=== PATIENT | male | born 1955 | race Caucasian/White ===

== ENCOUNTER 2018-03-27 11:09 | Outpatient (CLI) | payer OTHER ==
--- NOTE | 2018-03-27 15:53 | MRI ---
MRI OF THE BRAIN WITHOUT AND WITH CONTRAST: Date: 03/27/18 HISTORY: Mild cognitive impairment. TECHNIQUE: Multiplanar, multisequence MR images were obtained of the brain without and with IV contrast. FINDINGS: There are scattered foci of high FLAIR signal in the subcortical and periventricular white matter, li mando secondary to small vessel ischemic disease. No restricted diffusion is seen to suggest an acute infarction. No abnormal enhancement is appreciated. There is no evidence of hydrocephalus, intracranial hemorrhage, or extra-axial fluid collection. The expected flow-voids are present. The corpus callosum, pituitary, and craniocervical junction are unre markable. IMPRESSION: Small vessel ischemic disease without acute intracranial abnormality. POS: [facility]
--- NOTE | 2018-03-27 16:08 | MRI ---
MRI CERVICAL SPINE WITH AND WITHOUT CONTRAST: HISTORY: Abnormal gait. Evaluate for cord abnormality. COMPARISON: None. TECHNIQUE: Cervical spine MRI is performed with and without intravenous Gadolinium administration. Multisequent ial, multiplanar imaging is performed. FINDINGS: Appropriate T1 marrow signal intensity of the cervical vertebrae. Exaggeration of normal cervical lo rdosis likely due to patient position. 1.7 mm of retrolisthesis of C4 upon C5. No significant SIR h yperintensity to suggest vertebral body edema or ligamentous injury. With regard to the cervical cord, there is subtle T2 hyperintensity noted on the left aspect of the c ord at the C5-C6 disk space level. Additionally, there is abnormal signal intensity involving the up per thoracic cord at the T1-T2 level. Refer to separate thoracic spine report for further detail. O n the postcontrast images, there does not appear to be any associated enhancement. Visualized brain parenchyma appears to be unremarkable. There is no abnormal enhancement of the vertebral bodies. Mild fullness of the lingual tonsils is noted. Nonemergent directed visualization is recommended. C2-C3: No significant disk-osteophyte complex. No significant central canal stenosis. Foramen are patent. C3-C4: No significant disk-osteophyte complex. No significant central canal stenosis. Foramen are patent. C4-C5: Broad-based disk-osteophyte complex. Mild central canal stenosis. Degenerative change of jose ateral uncovertebral joints results in mild bilateral foraminal narrowing. C5-C6: Left paracentral disk-osteophyte complex. No high-grade central canal stenosis. Mild right and left foraminal narrowing due to degenerative changes of the uncovertebral joint. There is abnorm al T2 hyperintensity involving the left aspect of the cord measuring 0.3 cm. C6-C7: Central disk-osteophyte complex abuts the thecal sac. Mild central canal stenosis. Foramen are patent. Questionable T2 hyperintensity along the posterior left aspect of the cord measuring 0.3 cm. IMPRESSION: 1. Abnormal T2 hyperintensity in the cervical and thoracic cord, worrisome for demyelinating plaques until proven otherwise. There is no associated enhancement. Clinical correlation is essentially fo r multiple sclerosis. 2. Degenerative change of the cervical spine as above. POS: [facility]
--- NOTE | 2018-03-27 16:30 | MRI ---
MRI THORACIC SPINE WITH AND WITHOUT CONTRAST: HISTORY: Gait abnormality. Myelopathy. COMPARISON: None. TECHNIQUE: A thoracic spine MRI is performed with and without intravenous Gadolinium administration. Multiseque ntial, multiplanar imaging is performed. FINDINGS: Appropriate T1 marrow signal intensity of the thoracic vertebrae. Vertebral body height is maintaine d. No fracture. No significant STIR hyperintensity to suggest edema or ligamentous injury. The visualized mediastinal structures and lung parenchymal are unremarkable. Dependent atelectatic c hanges are noted. The visualized solid organs are also unremarkable. On the sagittal T2 and STIR images, there is T2 hyperintensity involving the thoracic cord at T1, T2, T4, and T5. Post contrast images are somewhat limited. Questionable enhancement of the cord at T1, which is only appreciated on the sagittal images, and is difficult to determine on the axial images. There is 3 mm of anterolisthesis of T3 upon T4. C5-C6: Central/left paracentral disk that deforms the cord. Mild central canal stenosis. T8-T9: Central/left paracentral disk. No significant central canal stenosis. The foramina are lucero nt. IMPRESSION: T2 abnormality involving the upper thoracic cord without obvious enhancement that can be appreciated on multiple planes. Demyelinating plaques are favored without evidence of definite active demyelinat ion. Correlate clinically for multiple sclerosis. POS: [facility]
== END 2018-03-27 11:10 | disposition home or self-care (01) ==
LOC: SCSMRI 11:09
PROVIDERS: ATTEND Psychiatry & Neurology Neurology
DX: G31.84 Mild cognitive impairment of uncertain or unknown etiology (principal); R26.9 Unspecified abnormalities of gait and mobility; G95.9 Disease of spinal cord, unspecified; M47.892 Other spondylosis, cervical region; G93.9 Disorder of brain, unspecified; R93.0 Abnormal findings on diagnostic imaging of skull and head, not elsewhere classified
CPT/HCPCS: 70553; 72156; 72157; 82565

== ENCOUNTER 2018-09-14 11:53 | Outpatient (CLI) | payer OTHER ==
[~2018-09-14 11:53] MED LIST: Gadobenate Dimeglumine 529 MG/1 ML (20ML VIAL) ONE
--- NOTE | 2018-09-15 09:38 | MRI ---
MRI BRAIN WITHOUT AND WITH CONTRAST: Comparison: 03-27-18 History: Multiple sclerosis. Patient is on new medication and needs new baseline. Technique: Multiplanar, multisequence MRI images were obtained of the brain without and with IV contr ast. FINDINGS: There are a few scattered foci of high T2/FLAIR signal in the subcortical and periventricular white m atter. The largest is seen in the left periventricular white matter measuring 1.1 cm in size. These l esions are all stable compared to the prior examination. Some of these lesions may involve the corpus callosum which can be seen with multiple sclerosis. No abnormal enhancement is seen on this exam to suggest active disease. There is no evidence of hydrocephalus, intracranial hemorrhage, or extraaxial fluid collection. No re stricted diffusion is seen. The calvarium and overlying soft tissues are unremarkable. The visualized paranasal sinuses and masto id air cells are well aerated. IMPRESSION: There are stable foci of high FLAIR signal in the white matter. This could be secondary to small vess el ischemic disease or multiple sclerosis. No enhancement is seen to suggest active disease at this t quentin. POS: [facility]
--- NOTE | 2018-09-15 11:24 | MRI ---
MRI CERVICAL SPINE WITH AND WITHOUT CONTRAST: Technique: Multiplanar, multisequence MRI imaging of the cervical spine were obtained with post contr ast administered after administration of 15 cc MultiHance IV. Indications: MS. Starting new medication and request new baseline. Comparison: 03-27-18 FINDINGS: The exam is degraded due to motion artifact. Numerous sequences were repeated. There continues to be a focal area of high signal in the cervical cord at the C5-6 level to the left of midline. This measures approximately 9 mm craniocaudal dimension in the sagittal plane and appears unchanged in size and appearance from 03-27-18. No definite enhancement identified. Cervical cord is otherwise unremarkable. The cervical vertebrae maintain normal height and alignment. There is mild degenerative disc change at C4-5 and C5-6 with posterior disc bulge and spondylosis at C4-5, C5-6, and C6-7, unchanged from the prior exam. IMPRESSION: 1. Small focus of cervical cord signal to the left of midline to C5-6 level is stable when compared t o 03-27-18. No interval change apparent. POS: [facility]
--- NOTE | 2018-09-15 11:29 | MRI ---
MRI OF THE LUMBAR SPINE WITH AND WITHOUT CONTRAST: Date: 09-14-18 Comparison: Noncontrast enhanced imaging of the lumbar spine, 09-14-17. History: Multiple sclerosis. Technique: Multiplanar, multisequence MR imaging of the lumbar spine is provided with and without con trast. FINDINGS: The sagittal STIR imaging demonstrates no focal area of osseous marrow edema. There is no anterolisthesis or retrolisthesis noted within the lumbar spine. Assuming five lumbar typ e vertebral bodies, the conus medullaris terminates at the T12-L1 level. Please refer to MRI of the lumbar spine with and without contrast for assessment of the spinal cord. T12-L1: Mild bilateral facet hypertrophy. Intervertebral disc height and signal intensity within norm al limits with no significant central canal or neural foraminal stenosis. L1-2: Mild bilateral facet hypertrophy. Disc space narrowing and mild disc bulge present with no sign ificant central canal or neural foraminal stenosis. L2-3: Mild bilateral facet hypertrophy. There is disc desiccation and mild disc bulge with mild disc space narrowing. No significant central canal or neural foraminal stenosis. L3-4: There is disc desiccation and mild disc bulge. There is no significant central canal or neural foraminal stenosis. There is mild bilateral facet hypertrophy and hypertrophy of the ligamentum flavu m. L4-5: Bilateral facet hypertrophy and hypertrophy of the ligamentum flavum, right greater than left. There is disc space narrowing, disc desiccation, mild disc bulge, and central annular tear with a sma ll associated central disc protrusion. No significant central canal or neural foraminal stenosis. L5-S1: Intervertebral disc height and signal intensity is within normal limits with no significant ce ntral canal or neural foraminal stenosis. The post contrast imaging is slightly limited by patient motion artifact and demonstrates no abnormal enhancement involving the contents of the thecal sac, the vertebral bodies or intervertebral discs. IMPRESSION: 1. Degenerative changes within the lumbar spine as detailed above. POS: [facility]
--- NOTE | 2018-09-15 12:22 | MRI ---
MRI THORACIC SPINE WITH AND WITHOUT CONTRAST: Date: 09/14/18 Multiplanar, multisequential imaging of the thoracic spine obtained. Postcontrast images were obtaine d after administration of IV MultiHance. INDICATION: MS. Starting new medication and requests new baseline exam. Comparison made to recent MRI of thoracic spine dated 03/27/18. FINDINGS: Motion artifact degrades the study. Axial images are especially degraded. T2 sagittal images again show areas of increased cord signal in the thoracic cord at T1-T2 and at T4- T5. At the T1-T2 level, the signal abnormality extends over a craniocaudal length of approximately 1. 6 cm, and at the T4-T5 level, the craniocaudal length is recorded at approximately 2.0 cm. These foca l areas of cord signal abnormality do not appear significantly changed in size or appearance when com pared to 03/27/18. There is no evidence of enhancement identified on the sagittal T1 postcontrast sarah ges. Axial postcontrast images are severely degraded from motion. Thoracic spine otherwise appears stable. The thoracic vertebra maintain height and alignment and exhi bit normal signal. Slight anterolisthesis at T3-4 was described previously and is unchanged. IMPRESSION: Thoracic cord abnormality is again noted at T1-T2 and at T4-T5. Findings appear stable from 03/27/18. POS: [facility]
== END 2018-09-14 11:54 | disposition home or self-care (01) ==
LOC: SCSMRI 11:53
PROVIDERS: ATTEND Nurse Practitioner Acute Care
DX: G35 Multiple sclerosis (principal); M47.896 Other spondylosis, lumbar region; R93.7 Abnormal findings on diagnostic imaging of other parts of musculoskeletal system; R90.82 White matter disease, unspecified
CPT/HCPCS: 70553; 72156; 72157; 72158; A9579

== ENCOUNTER 2019-04-25 11:14 | Outpatient (CLI) | payer MEDICARE ==
--- NOTE | 2019-04-25 14:58 | MRI ---
Pre and postcontrast enhanced MRI images cervical spine. Comparison made to previous exam from 09/14/2018. Multiplanar multisequence pre and postcontrast enhanced MRI images cervical spine obtained. C1-2, C2-3. Unremarkable. C3-4: There is a mild broad-based disc bulge minimally but not significantly compressing the thecal s ac. The neural foramen are patent. C4-5: There is some disc desiccation. There is a broad-based disc osteophyte complex centrally compre ssing the thecal sac resulting in moderate degree of thecal sac compression. There is mild bilateral C4-5 neural foraminal narrowing. C5-6: There is a mild broad-based disc bulge. The right neural foramen is patent. There is mild left C5-6 neural foraminal narrowing. There is an area of signal abnormality seen in the left spinal cord unchanged since the previous MRI from 09/14/2018. No evidence of increased signals or atrophy se en in this region. No evidence of extension of this lesion seen above or below this level. C6-7: There is a mild broad-based disc protrusion compressing the thecal sac without evidence of obvi ous cord compression. The neural foramen are patent. C7-T1: Unremarkable. IMPRESSION: Stable MRI appearance of the cervical spine. Transcribed Date/Time: 04/25/2019 4:30 PM
--- NOTE | 2019-04-25 15:32 | MRI ---
MRI THORACIC SPINE WITH AND WITHOUT CONTRAST: 04/25/19 HISTORY: 64-year-old male with G35, multiple sclerosis. COMPARISON: 09/14/18. FINDINGS: There is no abnormal enhancement in the intramedullary, extramedullary -intradural, extradural, inter osseous, or perivertebral, spaces. There is no syringohydromyelia. Again noted are the intramedullary T2 hyperintense lesions, one of them from mid T1 to mid T2, and the other one from mid T4 to mid T5. There are no definite new lesion is identified. Multilevel mild degenerative disc changes. Central d isc herniation at T7-8 encroaching upon the anterior aspect of the spinal canal is new since the prio r MRI. It abuts the ventral aspect of the spinal cord without significant displacement. There is a sm aller left paracentral focal disc herniation at T8-9 protruding into the spinal canal, slightly large r than it was on prior study. IMPRESSION: 1. At least two intramedullary demyelinating plaque of multiple sclerosis, one centered at T1-2 and the other centered at T4-5. 2. No new intramedullary lesions identified. 3. Interval development of small central disc herniation at T7-8. 4. Slight interval growth of small left paracentral disc herniation at T8-9. POS: [facility]
--- NOTE | 2019-04-25 15:52 | MRI ---
MRI OF THE BRAIN WITH AND WITHOUT CONTRAST: 04/25/19 INDICATION: Multiple sclerosis. Weakness of right lower extremity and difficulty with gait. Reference made to 09/14/18 exam. FINDINGS: There is redemonstration of pericallosal signal alteration within the bilateral cerebral hemispheres, and involving the corpus callosum, grossly stable. No enhancing lesions are present within the brain parenchyma. There is mild global atrophy with mild compensatory dilatation of ventricular system. N o restricted diffusion. There is a partially visualized fat density focus of the right occipital scal p, likely a mildly complex lipomatous lesion given internal septation, although incompletely visualiz ed. IMPRESSION: Persistent callosal/pericallosal signal abnormalities in keeping with history of multiple sclerosis. No enhancing lesions are present to confirm active demyelination. POS: [facility]
== END 2019-04-25 11:15 | disposition home or self-care (01) ==
LOC: SCSMRI 11:14
PROVIDERS: ATTEND Nurse Practitioner Acute Care
DX: G35 Multiple sclerosis (principal); R90.89 Other abnormal findings on diagnostic imaging of central nervous system; M51.24 Other intervertebral disc displacement, thoracic region
CPT/HCPCS: 70553; 72156; 72157; 82565; A9577

== ENCOUNTER 2020-05-14 12:08 | Outpatient (CLI) | payer MEDICARE ==
[2020-05-14 18:07] LABS: #Basophils 0.1 thou/uL (0.0-0.2); #Eosinphils 0.1 thou/uL (0.0-0.7); #Lymphocytes 1.4 thou/uL (1.20-3.40); #Monocytes 0.6 thou/uL (0.11-0.59); #Neutrophils 3.8 thou/uL (1.40-6.50); %Basophils 1.1 % (0.0-1.0); %Eosinophils 2.4 % (0.0-10.0); %Lymphocytes 23.3 % (21.0-51.0); %Monocytes 10.2 % (0.0-10.0); Hemoglobin 13.9 g/dL (14.0-18.0); Mean Corpuscular HGB CONC 35.5 g/dL (32.0-36.0); Mean Corpuscular Hemoglobin 33.5 pg (27.0-31.0); Mean Corpuscular Volume 94.2 fL (78.0-98.0); Platelet Count 269 thou/uL (130-400); RBC Distribution Width 11.7 % (11.5-14.5); Red Blood Cell (RBC) Count 4.14 mill/uL (4.70-6.10); White Blood Cell (WBC) Count 6.1 thou/uL (4.8-10.8)
[2020-05-14 18:18] LABS: ALT (SGPT) 11 U/L (8-55); AST (SGOT) 14 U/L (5-34); Albumin 4.6 g/dL (3.4-4.8); Alkaline Phosphatase 69 U/L (40-110); Anion Gap 12 mmol/L (10-20); BUN (Urea Nitrogen) 14 mg/dL (8.4-25.7); Bilirubin, Total 0.3 mg/dL (0.2-1.2); Calc. Creatinine Clearance 0 mL/min (70-130); Calcium 9.4 mg/dL (7.8-10.44); Carbon Dioxide 29 mmol/L (23-31); Chloride 102 mmol/L (98-107); Estimated GFR-MDRD 73; Globulin 2.2 g/dL (2.4-3.5); Glucose 76 mg/dL (80-115); Potassium 4.1 mmol/L (3.5-5.1); Protein, Total 6.8 g/dL (5.8-8.1); Sodium 139 mmol/L (136-145)
--- NOTE | 2020-05-15 07:50 | MRI ---
Exam: Brain MRI with and without contrast HISTORY: Multiple sclerosis COMPARISON: 04/25/2019 FINDINGS: Gradient echo sequence: No hemorrhage Calvarium: Appropriate T1 marrow signal intensity Midline brain parenchyma: Unremarkable Cerebrum:There are minimal scattered callosal/pericallosal T2 and FLAIR hyperintensities, compatible with the patient's history of multiple sclerosis. There are no new abnormal T2 or FLAIR hyperintense lesions. Ventricles: No evidence of hydrocephalus. Sinuses and mastoid air cells: Adequate aeration Diffusion: Central arterial flow is maintained. Absent restricted diffusion. Postcontrast images: No pathologic enhancement of the brain parenchyma. IMPRESSION: 1. Stable white matter hyperintensities compatible with patient's history of multiple sclerosis. Ther e are no new T2 or FLAIR hyperintense lesion. No restricted diffusion or enhancement to suggest active demyelination.
--- NOTE | 2020-05-15 07:55 | MRI ---
CERVICAL SPINE MRI WITH AND WITHOUT CONTRAST: HISTORY: Multiple sclerosis. COMPARISON: 04/25/2019. FINDINGS: Appropriate T1 marrow signal intensity of the cervical vertebrae. Cervical spine vertebral body heigh t is maintained. No fracture. No significant STIR hyperintensity to suggest vertebral body edema or ligamentous injury. Stable grade 1 retrolisthesis of C4 upon C5. There are type I and type II Modic c hanges along the left aspect of the C4-C5 disc space. Visualized brain parenchyma, cervicomedullary junction, cervical cord with the exception of the C5-C6 level have appropriate signal intensity. There are no new areas of abnormal T2 hyperintensity in the cervical cord. There is a stable T2 hyperintense lesion along the left aspect of the cervical cor d at the C5-C6 disc space. Signal abnormality is unchanged. No associated enhancement to suggest active demyelination. C2-C3: No significant central canal stenosis or significant neural foraminal narrowing. C3 3-C4: Central disc herniation effaces the subarachnoid space. Mild central canal stenosis. Mild bi lateral neural foraminal narrowing. C4-C5: Disc desiccation with moderate loss of disc space height. Broad-based disc bulge abuts the the kavon sac. Mild mass effect upon the cervical cord. Mild central canal stenosis. Right neural foramen is patent. Mild to moderate left foraminal narrowing due to uncovertebral hypertrophy. C5-C6: Broad-based disc bulge abuts the thecal sac. Subarachnoid space is nearly effaced. Mild centra l canal stenosis. Mild bilateral foraminal narrowing due to uncovertebral hypertrophy. C6-C7: Broad-based disc bulge abuts the thecal sac and deforms the cervical cord. There is a small ce ntral disc herniation which contributes to the deformity of the cervical cord. Mild to moderate central canal stenosis. Mild bilateral neural foraminal narrowing. The degree of central canal stenos is has not significantly changed. C7-T1: No significant central canal stenosis or significant neural foraminal narrowing. IMPRESSION: 1. Stable degenerative changes of the cervical spine. 2. Stable abnormal T2 hyperintensity along the left aspect of the cervical cord at the C5-C6 level. N o associated enhancement to suggest active demyelination. There are no new abnormal signal intensity in the cervical cord. Transcribed Date/Time: 05/15/2020 8:08 AM
--- NOTE | 2020-05-15 08:08 | MRI ---
MRI thoracic spine with and without contrast: DATE: 05/15/2020 HISTORY: 65-year-old male with multiple sclerosis. Follow-up. COMPARISON: 04/25/2019 FINDINGS: Again noted are the intramedullary T2-height are intense lesions. The most notable 1's involve the ri ght hemicord from mid T1 to mid T2, and another one involving midline cord from mid C4 to mid T5. There are probably other lesions at other levels in the mid and lower thoracic spinal cord, which wer e poorly visualized on the prior study because of low image resolution and motion artifact. The image quality is better on the current study, now better demonstrating those lesions. The previously mentioned central and right paracentral focal disc herniation at T7-8 has become small er. The small central and left paracentral disc herniation at T8-9 is unchanged. No extrinsic cord compression. No syringohydromyelia. No high-grade central spinal canal stenosis. Demetrius ne marrow signal is normal. No abnormal intramedullary enhancement. IMPRESSION: 1.) Probably no significant interval change in demyelinating plaques of multiple sclerosis in the tho racic spinal cord. 2) interval regression of the T7-8 disc herniation.
== END 2020-05-14 12:09 | disposition home or self-care (01) ==
LOC: SCSMRI 12:08
PROVIDERS: ATTEND Nurse Practitioner Acute Care
DX: G35 Multiple sclerosis (principal); M51.24 Other intervertebral disc displacement, thoracic region; M47.812 Spondylosis without myelopathy or radiculopathy, cervical region; G93.89 Other specified disorders of brain
CPT/HCPCS: 70553; 72156; 72157; 80053; 85025

== ENCOUNTER 2020-12-09 13:53 | Outpatient (CLI) | payer MEDICARE ==
--- NOTE | 2020-12-09 14:57 | ULT ---
US Renal Bilateral STANDARD History: Urgency administration Comparison: None. Findings: Real-time grayscale and color evaluation of the kidneys and urinary bladder is performed. Right kidney measures 9.9 x 5.5 x 5.8 cm without mass or hydronephrosis. Possible 3 mm interpolar non obstructing calculus. The left kidney measures 10 x 5.2 x 5.3 cm also without mass, hydronephrosis or abnormal calcifications. The technologist measures a right perinephric 1.4 cm anechoic focus may reflect a small collection of fluid and there is no definite connection to the kidney itself. Prevoid urinary bladder volume measures 276 mL. Post void volume is 8.7 mL. Impression: 1. Normal post void volume of 8.7 mL. 2. No evidence for obstructive uropathy. 3. Possible 3 mm nonobstructing calculus interpolar right kidney.
== END 2020-12-09 13:54 | disposition home or self-care (01) ==
LOC: BICULT 13:53
PROVIDERS: ATTEND Urology
DX: R39.15 Urgency of urination (principal); R35.0 Frequency of micturition; G35 Multiple sclerosis
CPT/HCPCS: 76770

== ENCOUNTER 2021-05-18 07:47 | Outpatient (CLI) | payer MEDICARE ==
[2021-05-18] MEDS ORDERED: Magnevist 469MG/ML 20 ML VIAL ONE ×3 (09:41)
== END 2021-05-18 07:48 | disposition home or self-care (01) ==
LOC: BICMRI 07:47
PROVIDERS: ATTEND Nurse Practitioner Acute Care
DX: G35 Multiple sclerosis (principal); G93.89 Other specified disorders of brain; R90.82 White matter disease, unspecified
CPT/HCPCS: 70553; 72156; 72157; 82565; A9579

== ENCOUNTER 2023-07-21 12:38 | Outpatient (CLI) | payer MEDICARE | END 2023-07-21 12:39 | disposition home or self-care (01) | LOC: SCSMRI 12:38 | PROVIDERS: ATTEND Psychiatry & Neurology Neurology | DX: G35 Multiple sclerosis (principal); R90.82 White matter disease, unspecified | CPT/HCPCS: 70553; 72156; 72157 ==